=== PATIENT | female | born 1995 | race Caucasian/White ===

== ENCOUNTER 2017-10-24 08:00 | Outpatient (CLI) | payer OTHER | END 2017-10-24 08:01 | disposition home or self-care (01) | LOC: LAB.R 08:00 | PROVIDERS: ATTEND Registered Nurse | DX: Z34.81 Encounter for supervision of other normal pregnancy, first trimester (principal); Z36.9 Encounter for antenatal screening, unspecified | CPT/HCPCS: 87491; 87591 ==

== ENCOUNTER 2017-11-05 12:38 | Outpatient (CLI) | payer OTHER ==
[2017-11-05 13:35] LABS: BILIRUBIN,URINE NEGATIVE (NEGATIVE); GLUCOSE, URINE (UA) NEGATIVE (NEGATIVE); KETONES,URINE (UA) NEGATIVE (NEGATIVE); LEUKOCYTE ESTERASE, URINE NEGATIVE (NEGATIVE); NITRITE,URINE NEGATIVE (NEGATIVE); OCCULT BLOOD,URINE NEGATIVE (NEGATIVE); PH,URINE 6.5 PH (5.0-7.5); PROTEIN,URINE NEGATIVE (NEGATIVE); UROBILINOGEN,URINE 0.2 (NORMAL) E.U./dL (NORMAL)
[2017-11-05 13:36] LABS: CLARITY,URINE HAZY (CLEAR)
[2017-11-05 13:42] LABS: BACTERIA,URINE Many /HPF (None Seen); RBC,URINE 0-5 /HPF (0-5); SQUAMOUS EPITHELIAL CELL,UR MANY Squamous (<= Few)
[2017-11-05 13:56] LABS: BASOPHILS # (AUTO) 0.1 10^3/uL (0.0-0.1); BASOPHILS % (AUTO) 0.8 %; EOSINOPHILS # (AUTO) 0.1 10^3/uL (0.0-0.7); EOSINOPHILS % (AUTO) 1.5 %; HGB - HEMOGLOBIN 13.8 g/dL (12.0-16.0); LYMPHOCYTES # (AUTO) 2.4 10^3/uL (1.5-3.5); LYMPHOCYTES % (AUTO) 25.5 %; MEAN CORPUSCULAR HEMOGLOBIN 30.3 pg (27.0-31.0); MEAN CORPUSCULAR HGB CONC 34.6 g/dL (32.0-36.0); MEAN CORPUSCULAR VOLUME 87.8 fL (81.0-99.0); MEAN PLATELET VOLUME 6.2 fL (7.9-10.8); MONOCYTES # (AUTO) 0.7 10^3/uL (0.0-1.0); MONOCYTES % (AUTO) 7.1 %; NEUTROPHILS # (AUTO) 6.1 10^3/uL (1.5-6.6); NEUTROPHILS % (AUTO) 65.1 %; PLT - PLATELET COUNT 219 10^3/uL (130-450); RED BLOOD COUNT 4.55 10^6/uL (4.20-5.40); RED CELL DISTRIBUTION WIDTH 13.6 % (12.0-15.0); WHITE BLOOD COUNT 9.3 x10^3/uL (4.8-10.8)
[2017-11-08 08:47] LABS: HEPATITIS C ANTIBODY NON-REACTIVE (NON-REACTIVE)
[2017-11-08 08:48] LABS: HEPATITIS B SURFACE ANTIGEN NON-REACTIVE (NON-REACTIVE)
[2017-11-08 13:53] LABS: HIV AG/AB 4TH GEN NON-REACTIVE (NON-REACTIVE)
== END 2017-11-05 12:39 | disposition home or self-care (01) ==
LOC: LAB 12:38
PROVIDERS: ATTEND Registered Nurse
DX: Z36.9 Encounter for antenatal screening, unspecified (principal); Z34.81 Encounter for supervision of other normal pregnancy, first trimester
CPT/HCPCS: 36415; 81001; 81599; 85025; 86592; 86762; 86803; 86850; 86900; 86901; 87340; 87389

== ENCOUNTER 2017-11-06 11:14 | Outpatient (CLI) | payer OTHER ==
[2017-11-06] MEDS ORDERED: LACTATED RINGERS 1,000 ML IV ONE (11:21)
[2017-11-06] MEDS ORDERED: ONDANSETRON 4 MG/2 ML VIAL IVP PRN (11:21)
[2017-11-06] MEDS: SODIUM CHLORIDE FLUSH 0.9% 10 ML SYRINGE ONE (11:58)
[2017-11-06 14:30] VITALS: BP 102/56
== END 2017-11-06 14:20 | disposition home or self-care (01) ==
LOC: WFO 11:14 → FBP 11:15 → WFO 14:20
PROVIDERS: ATTEND Nurse Practitioner Obstetrics & Gynecology
DX: O21.9 Vomiting of pregnancy, unspecified (principal); Z3A.12 12 weeks gestation of pregnancy
CPT/HCPCS: 96374; 99211; J7120

== ENCOUNTER 2017-12-29 07:24 | Outpatient (CLI) | payer OTHER ==
--- NOTE | 2017-12-31 18:01 | Ultrasound Report ---
OB ULTRASOUND: 12/29/2017 CLINICAL INDICATION: anatomy. TECHNIQUE: Real-time scanning was performed with transportation services representative static images obtained. LAST MENSTRUAL PERIOD: 08/12/2017 Clinical Age: -- US Age: 20 weeks 3 days EFW Hadlock: 360 grams EFW% Hadlock: -- Heart Rate: 154 bpm EDC: 05/19/2018 US EDC: 05/15/2018 BPD Hadlock: 20 weeks 1 day; Mean mm 47 HC Hadlock: 20 weeks 0 days; Mean mm 175 AC Hadlock: 20 weeks 4 days; Mean mm 154 FL Hadlock: 20 weeks 5 days; Mean mm 34 Presentation: cephalic Placental Location: fundal - L Cervical Length: TA 4.0 cm Amniotic Fluid: LORNE 12.6 cm; subjectively normal; MVP 4.1 cm FINDINGS: There is a single viable intrauterine gestation in cephalic presentation. heart rate is 154 BPM. Placenta is fundal, without evidence of previa. Amniotic fluid volume is subjectively normal, with the deepest pocket of 4.1 cm. By size, the fetus measures 20 weeks 3 days (uncertain LMP). ANATOMY The following anatomic structures were visualized and appear normal: The intracranial contents, including the ventricles and posterior fossa; the lips and orbits; the spine; the heart, including 4 chamber view and outflow tracts, and diaphragm; the abdominal contents, including the stomach, the bilateral kidneys, and urinary bladder, as well as a normal 3-vessel cord insertion; 4 limbs. No free fluid or adnexal lesion is appreciated. IMPRESSION: SINGLE VIABLE INTRAUTERINE GESTATION, MEASURING 20 WEEKS 3 DAYS BY SIZE. NORMAL ANATOMIC SURVEY. TD: 12/29/2017 10:21 [facility]
== END 2017-12-29 07:25 | disposition home or self-care (01) ==
LOC: DI 07:24
PROVIDERS: ATTEND Registered Nurse
DX: Z36.9 Encounter for antenatal screening, unspecified (principal)
CPT/HCPCS: 76811

== ENCOUNTER 2018-02-13 11:24 | Outpatient (CLI) | payer OTHER ==
[2018-02-13 12:43] LABS: HGB - HEMOGLOBIN 11.8 g/dL (12.0-16.0); MEAN CORPUSCULAR HEMOGLOBIN 31.5 pg (27.0-31.0); MEAN CORPUSCULAR HGB CONC 33.5 g/dL (32.0-36.0); MEAN CORPUSCULAR VOLUME 94.1 fL (81.0-99.0); RED BLOOD COUNT 3.75 10^6/uL (4.20-5.40); RED CELL DISTRIBUTION WIDTH 12.9 % (12.0-15.0); WHITE BLOOD COUNT 11.1 x10^3/uL (4.8-10.8)
== END 2018-02-13 11:25 | disposition home or self-care (01) ==
LOC: LAB 11:24
PROVIDERS: ATTEND Registered Nurse
DX: Z34.82 Encounter for supervision of other normal pregnancy, second trimester (principal)
CPT/HCPCS: 36415; 82950; 85027; 86850

== ENCOUNTER 2018-04-12 12:14 | Outpatient (CLI) | payer OTHER ==
[2018-04-12 12:25] VITALS: BP 130/75
[2018-04-12 13:16] LABS: RUPTURE OF MEMBRANES PLUS NEGATIVE (NEGATIVE)
== END 2018-04-12 13:20 | disposition home or self-care (01) ==
LOC: WFO 12:14 → FBP 12:16 → WFO 13:20
PROVIDERS: ATTEND Registered Nurse
DX: O99.89 Other specified diseases and conditions complicating pregnancy, childbirth and the puerperium (principal); N89.8 Other specified noninflammatory disorders of vagina; Z3A.34 34 weeks gestation of pregnancy
CPT/HCPCS: 84112; 99213

== ENCOUNTER 2018-04-25 08:00 | Outpatient (CLI) | payer OTHER | END 2018-04-25 08:01 | disposition home or self-care (01) | LOC: LAB.R 08:00 | PROVIDERS: ATTEND Nurse Practitioner Obstetrics & Gynecology | DX: Z36.85 Encounter for antenatal screening for Streptococcus B (principal) | CPT/HCPCS: 87797 ==

== ENCOUNTER 2018-05-18 20:06 | Inpatient (IN) | payer OTHER ==
[2018-05-18 20:29] LABS: RUPTURE OF MEMBRANES PLUS POSITIVE (NEGATIVE)
[2018-05-18] MEDS ORDERED: SODIUM CHLORIDE FLUSH 0.9% 10 ML SYRINGE IVP PRN (20:36)
[2018-05-18] MEDS ORDERED: OXYTOCIN/SODIUM CHLORIDE 500 ML IV SCH (21:00)
[2018-05-18] MEDS: LACTATED RINGERS 1,000 ML IV SCH (21:00)
[2018-05-18 21:29] LABS: BASOPHILS # (AUTO) 0.1 10^3/uL (0.0-0.1); EOSINOPHILS # (AUTO) 0.1 10^3/uL (0.0-0.7); EOSINOPHILS % (AUTO) 1.3 %; HGB - HEMOGLOBIN 12.1 g/dL (12.0-16.0); LYMPHOCYTES # (AUTO) 2.1 10^3/uL (1.5-3.5); LYMPHOCYTES % (AUTO) 21.3 %; MEAN CORPUSCULAR HEMOGLOBIN 31.6 pg (27.0-31.0); MEAN CORPUSCULAR VOLUME 90.2 fL (81.0-99.0); MEAN PLATELET VOLUME 6.7 fL (7.9-10.8); MONOCYTES # (AUTO) 0.8 10^3/uL (0.0-1.0); MONOCYTES % (AUTO) 8.7 %; NEUTROPHILS # (AUTO) 6.6 10^3/uL (1.5-6.6); NEUTROPHILS % (AUTO) 67.7 %; PLT - PLATELET COUNT 201 10^3/uL (130-450); RED BLOOD COUNT 3.82 10^6/uL (4.20-5.40); RED CELL DISTRIBUTION WIDTH 13.4 % (12.0-15.0); WHITE BLOOD COUNT 9.8 x10^3/uL (4.8-10.8)
--- NOTE | 2018-05-18 21:45 | HISTORY & PHYSICAL EXAMINATION ---
Admit History - Instructions Kaw/Slash: -Left hand click circles element as positive or present. -Right hand click slashes element as negative or not present. - Visit Reason Visit Reason: Membranes rupture - : 2 Parity: 0 Premature: 0 Ectopic: 0 : 1 Care: positive: [facility] Risk/History: positive: None Complications This : positive: None Smoking Status: Former smoker - Mother's Labs Mother's Blood Type: positive: O Mother's RH: positive: Positive GBS: positive: Group B Step Negative Rubella Status: positive: Immune Meds/Allgy - Home Medications Home Medications: Ambulatory Orders Medication Instructions Recorded Confirmed No Known Home Medications 09/24/15 09/24/15 - Allergies Allergies/Adverse Reactions: Allergies Allergy/AdvReac Type Severity Reaction Status Date / Time No Known Drug Allergies Allergy Verified 03/13/15 12:14 Review of Systems - Constitutional Constitutional: denies: Fatigue, Fever, Chills, Malaise - Eyes Eyes: denies: Pain, Irritation, Blurred vision, Spots in vision, Dipolpia - Ears, Nose & Throat Ears, Nose & Throat: denies: Tinnitus, Vertigo, Nasal congestion, Sore throat - Cardiovascular Cariovascular: denies: Irregular heart rate, Palpitations, Chest pain, Edema - Respiratory Respiratory: denies: Cough, Sputum production, Wheezing, Hemoptysis - Gastrointestinal Gastrointestinal: denies: Abdominal pain, Constipation, Diarrhea, Change in bowel habits, Nausea, Vomiting - Genitourinary Genitourinary: denies: Dysuria, Frequency, Urgency, Hematuria - Integumentary Integumentary: denies: Rash, Pruritis - Neurological Neurological: reports: Headache - Psychiatric Psychiatric: denies: Depression, Anxiety Physical - Abdominal Exam Vital Signs: Temp Pulse Resp BP Pulse Ox 36.4 C L 103 H 16 135/84 H 99 05/18/18 20:23 05/18/18 20:23 05/18/18 20:23 05/18/18 20:23 05/18/18 20:23 Contraction Frequency (min/apart): 5-7 Contraction Intensity: positive: Mild to moderate Uterine Resting Tone: positive: Soft - Monitoring Heart Rate Baseline: 140 Strip Review: positive: Category I - Presentation Presentation: positive: Vertex - Vaginal Exam Membranes: positive: Membranes ruptured Dilation (in cm): 4 Effacement (%): 80 Station: positive: 1 Cervical Position: positive: Posterior - Speculum Exam Speculum Exam Performed: positive: No Findings: positive: Gross leak Plan for Labor - Plan For Labor I expect patient to be DC'd or transferred within 96 hours.: Yes Plan for Labor: HPI: Charu is a 22yo @ 39.6wks gestation by LMP c/w 10.0wk U/S whom presents with c/o spontaneous rupture of membranes which was noted to be a large amount of clear fluid at approximately 1945 this evening (05/18/2018). She denies VB and reports +FM. Denies contractions. Her BP was moderately elevated upon her arrival at 142/76. Pt c/o persistent headache for the past couple of days. She denies visual disturbances, RUQ or epigastric pain and denies edema. She is a patient of [facility] in the care of the midwives and has received regular care since 10 weeks gestation. Her has been uncomplicated with the exception of significant nausea and vomiting secondary to gastroenteritis at 12 weeks gestation which required IV hydration and Zofran for management. Aaron and mom Brenda supportive at the bedside. Dating criteria: 1.) LMP 08/12/17 2.) Initial ultrasound at 10.0wks - agrees 3.) Serial exams 13-39 weeks -agree OB History: G1: SAB <6 weeks 09/2010 G2: Current PMHx: No significant. NKDA. MANAGER MANAGEMENT History: Menarche at age 12. No Hx STIs. No hx MANAGER MANAGEMENT surgeries. No Hx abnormal paps - last pap 2017 WNL Medications: PNV Surgical Hx: No previous surgeries Genetic Hx: maternal family hx Autism Social Hx: to Aaron. Previous some day smoker x 8 years prior to . No ETOH or IVDA. Family Hx: Alzheimer's - maternal grandfather; Diabetes - father, maternal grandmother; Heart attack/disease - father; HTN - mother; Alcohol or drug problem - father, paternal grandmother; hepatitis - father labs: O pos; antibody negative Hgb 13.8; Hct 40.0; 219 RPR non-reactive HIV non-reactive Hep B neg Hep C neg Rubella immune GC/CT negative 28wk labs: 1 hour GTT 112 Hgb 11.8; Hct 35.3; PLT 218 Antibody negative Tdap 03/10/2018 Influenza 05/16/2018 GBS negative Ultrasounds: Initial ultrasound at 10.0wks gestation reveals single, viable, intrauterine with CRL c/w LMP dating. 01/13/2018 FAS @ 20.3wks gestation reveals single viable intrauterine with size c/w assigned dating. Placenta fundal with no evidence of previa. LORNE WNL Physical Exam: A&O x4. Mood is good. Eager to meet her baby Heart RRR w/o M/G/R Lungs CTAB Abdomen gravid, soft, nontender. EFW 3200g SVE 4/80/-1, posterior, vertex Bilateral LE's no edema Assessment: 22yo @ 39.6wks gestation by LMP which equals 10.0wk U/S SROM x 3 hours GBS negative FHR Category I Plan: Initiation of pitocin for active management per protocol Continuous monitoring Encouraged frequent position changes and ambulation Epidural per maternal request Reviewed plan of care with pt, , mom, and RN at the bedside whom all agree with above plan and deny further questions or concerns at this time. Anticipate spontaneous vaginal delivery
[2018-05-18 22:17] LABS: URIC ACID 4.4 mg/dL (2.6-7.2)
[2018-05-18 23:02] LABS: CREATININE,URINE 68.8 mg/dL; MICROALBUM/CREATININE RATIO,UR 7.3 ug/mg (<30.0); MICROALBUMIN,URINE 0.5 mg/dL (0-300.0)
[2018-05-19] MEDS: LACTATED RINGERS 1,000 ML IV SCH ×3 (00:25→09:31)
[2018-05-19] MEDS ORDERED: fent/BUPIV 2 MCG/0.125% 250 ML EP ONE (00:40)
[2018-05-19] MEDS ORDERED: CITRIC ACID/SODIUM CITRATE 15 ML UDC PO ONE (00:41)
[2018-05-19] MEDS ORDERED: SODIUM CHLORIDE FLUSH 0.9% 10 ML SYRINGE IVP SCH (01:00)
[2018-05-19] MEDS ORDERED: METOCLOPRAMIDE 10 MG/2 ML VIAL IVP PRN (01:27)
[2018-05-19] MEDS ORDERED: fent/BUPIV 2 MCG/0.125% 250 ML EP PRN (01:27)
[2018-05-19] MEDS ORDERED: ePHEDrine 50 MG/ML VIAL IVP PRN (01:27)
[2018-05-19] MEDS ORDERED: NALOXONE 0.4 MG/ML VIAL IVP PRN (01:27)
[2018-05-19] MEDS ORDERED: LACTATED RINGERS 500 ML IV ONE (01:27)
[2018-05-19] MEDS ORDERED: ONDANSETRON 4 MG/2 ML VIAL IVP PRN (01:27)
[2018-05-19] MEDS ORDERED: NALBUPHINE 10 MG/ML AMP IVP PRN (01:27)
[2018-05-19] MEDS ORDERED: diphenhydrAMINE INJ 50 MG/ML VIAL IVP PRN (01:27)
--- NOTE | 2018-05-19 01:31 | ANESTHESIA ---
Pre-Anesthesia VS, & Labs - Diagnosis IUP term labor - Procedure Labor epidural placement Vital Signs: Temp Pulse Resp BP Pulse Ox 36.4 C L 103 H 16 135/84 H 99 05/18/18 20:23 05/18/18 20:23 05/18/18 20:23 05/18/18 20:23 05/18/18 20:23 Height 5 ft 9 in Weight (kg) 97.069 kg Body Mass Index 23.5 - Is Patient ?: Yes - Lab Results Current Lab Results: Laboratory Tests 05/18/18 22:00: Uric Acid 4.4, AST 19 05/18/18 22:00: Lactate Dehydrogenase 128 05/18/18 20:55: WBC 9.8, RBC 3.82 L, Hgb 12.1, Hct 34.5 L, MCV 90.2, MCH 31.6 H, MCHC 35.0, RDW 13.4, Plt Count 201, MPV 6.7 L, Neut # (Auto) 6.6, Lymph # (Auto) 2.1, [place] # (Auto) 0.8, Eos # (Auto) 0.1, Baso # (Auto) 0.1, Absolute Nucleated RBC 0.01, Nucleated RBC % 0.1 Lab results reviewed: Yes Fish Bones: 05/18/18 20:55 Home Medications and Allergies Home Medications: Ambulatory Orders Medication Instructions Recorded Confirmed No Known Home Medications 09/24/15 09/24/15 Active Medications Diphenhydramine HCl (Benadryl Inj) 12.5 - 25 mg IVP Q6HR PRN PRN Reason: ITCHING Ephedrine Sulfate () 5 mg IVP Q5M PRN PRN Reason: For SBP<100;give until SBP>100 Lactated Ringer's (Lr) 1,000 mls @ 150 mls/hr IV .Q6H40M MARILYN Last Admin: 05/19/18 00:25 Dose: 150 mls/hr Oxytocin/Sodium Chloride (Pitocin/Sodium Chloride) 500 mls @ 1 mls/hr IV TITR MARILYN; Protocol Last Admin: 05/19/18 00:25 Dose: 1 milliunit/min, 1 mls/hr Fentanyl/Bupivacaine/Sodium Chlor (Fent/Bupiv 2 Mcg/0.125%) 250 mls @ 0 mls/hr EP .Q0M PRN; Protocol PRN Reason: PAIN Lactated Ringer's (Lr) 500 mls @ 999 mls/hr IV ONCE ONE Stop: 05/19/18 01:57 Metoclopramide HCl (Reglan Inj) 10 mg IVP Q6HR PRN PRN Reason: Nausea / Vomiting Nalbuphine HCl (Nubain) 2.5 - 5 mg IVP Q4H PRN PRN Reason: ITCHING Naloxone HCl (Narcan) 0.1 mg IVP Q2M PRN PRN Reason: RR<8 Ondansetron HCl (Zofran Inj) 4 mg IVP Q6HR PRN PRN Reason: Nausea / Vomiting Sodium Chloride (Normal Saline Flush 0.9%) 10 ml IVP PRN PRN PRN Reason: NEEDED PER PROVIDER ORDERS Sodium Chloride (Normal Saline Flush 0.9%) 10 ml IVP 0100,0900,1700 MARILYN Last Admin: 05/19/18 00:25 Dose: 10 ml No Known Home Medications 09/24/15 Allergies/Adverse Reactions: Allergies Allergy/AdvReac Type Severity Reaction Status Date / Time No Known Drug Allergies Allergy Verified 03/13/15 12:14 Anes History & Medical History - Anesthetic History Anesthesia Complications: reports: No previous complications Family history of Anesthesia Complications: Denies Family history of Malignant Hyperthermia: Denies - Medical History Cardiovascular: reports: None Blood Disorders: reports: None Smoking Status: Former smoker - Obstetrical History : 2 Parity: 0 Events: positive: None Complications: positive: None Exam General: Alert, Oriented x3, Cooperative, No acute distress Dental: WNL Neck Mobility: Normal Mallampati classification: I Plan Anesthesia Type: Epidural Consent for Procedure(s) Verified and Reviewed: Yes Code Status: Attempt Resuscitation ASA classification: 2-Mild systemic disease Is this case an emergency?: No
--- NOTE | 2018-05-19 05:08 | PROVIDER PROGRESS NOTE ---
Labor Progress Note - Uterine Monitoring Uterine Monitoring Mode: positive: External toco Contraction Frequency (min/apart): 2-5 Contraction Intensity: positive: Moderate to strong Uterine Resting Tone: positive: Soft - Monitoring Monitor Mode: positive: External ultrasound Heart Rate Baseline: 130 Heart Rate Variability: positive: Moderate (6-25 bmp) Accelerations: positive: Absent Decelerations: positive: Early Strip Review: positive: Category I - Vaginal Exam Dilation (in cm): 6 Effacement (%): 100 Station: 1 Cervical Position: Midposition - Labor Progress Note Labor Progress Note/Additional Text: S: Patient sleeping comfortably in bed with epidural. Able to feel increasing pressure with contractions but states epidural is covering her pain with contractions well. and mom supportive at the bedside. O: BP 121/61, HR 83, RR 16 FHR baseline 140, moderate variability, no accels, recurrent early decelerations Contractions palpate moderate-firm every 2-5 minutes lasting 45-90 seconds with soft resting tone SVE 6/100/+1, midposition Pitocin @ 5mU/min A: 22yo @ 40.0wks gestation Augmentation of labor secondary to PROM Pitocin per protocol for a max infusion rate of 7mU/min SROM x 9 hours Category I FHR tracing GBS negative P: Continue active management with titration of pitocin per protocol Epidural adequate for pain management Continue rotation in bed with peanut ball Continuous monitoring Anticipate spontaneous vaginal delivery
[2018-05-19] MEDS ORDERED: HYDROCORTISONE/PRAMOXINE 10 GM PR PRN (11:55)
[2018-05-19] MEDS ORDERED: OXYTOCIN/SODIUM CHLORIDE 250 ML IV ONE (11:55)
--- NOTE | 2018-05-19 12:15 | DELIVERY NOTE ---
Delivery Note - Labor Labor: positive: Augmented by oxytocin - Delivery Method Delivery Method: positive: Spontaneous vaginal delivery - Presentation Presentation: positive: Vertex, MC - left occiput anterior - Nuchal Cord Nuchal Cord: positive: None - Amniotic Fluid Description Amniotic Fluid Description: positive: Clear - Episiotomy Type Episiotomy Type: positive: None - Laceration Laceration: positive: None - Delivery Outcome Delivery Outcome: positive: Livebirth - [place]: positive: Placed in direct skin contact with mother, Stimulated, Warmed, [place] used sex: positive: Female - Cord Cord: positive: 3 vessels - Placenta Placenta: positive: Intact, Spontaneous - Estimated Blood Loss Estimated Blood Loss (in cc): 250 - Post Delivery Events Post Delivery Events: positive: No post delivery events - Delivery Comments (Free Text/Narrative) Delivery Comments (Free Text/Narrative): Labor: This 22yo @ 40.0wks gestation by LMP presented at on 05/18/2018 at approximately 2000 with c/o SROM large amount of clear fluid at 1930 on 05/18/2018. Cervix was 4/80/-1, posterior and vertex. No contractions appreciated. Upon her arrival she complained of a persistent headache and had 3 moderately elevated BPs 140s/80s -PIH panel was ordered and was WNL. Subsequent BPs normotensive. FHR pattern demonstrated a baseline 150 with episodes of minimal variability and Category II tracing - overall reassuring. Epidural placed upon maternal request. Patient progressed to c/c/+1 at 0928 with effective maternal pushing effort beginning at 0937. : Normal SVB of viable female infant named Margret with delivery of head occurring at 1138 on 05/19/2018, no nuchal cord, and delivery of anterior shoulder followed closely by infant body at 1139. 's were 8/9 at 1 and 5 min respectively. The was placed on maternal abdomen, stimulated, dried, and placed skin to skin. The umbilical cord was allowed to stop pulsating at which time it was doubly clamped by CNM and cut by FOB. Cord blood was obtained. Placenta delivered spontaneously and intact at 1145. 3VC. Pitocin was administered via IV for hemostasis. EBL 250mL. Fourth Stage: Uterine fundus firm and there is no excessive bleeding. Perineum, vagina, and cervix were inspected and found to be intact. initiated. Family bonding well. Both mother and baby were left in stable condition.
[2018-05-19] MEDS: IBUPROFEN 800 MG TABLET PO SCH ×2 (13:08→20:27)
[2018-05-19] MEDS: ACETAMINOPHEN 500 MG TABLET PO SCH ×2 (13:09→21:12)
[2018-05-19] MEDS: WITCH HAZEL/GLYCERIN 1 EACH MED..PAD TOP PRN (14:21)
[2018-05-19] MEDS: DOCUSATE SODIUM 100 MG CAPSULE PO SCH (21:12)
[2018-05-20] MEDS: IBUPROFEN 800 MG TABLET PO SCH ×3 (02:41→18:52)
[2018-05-20] MEDS: ACETAMINOPHEN 500 MG TABLET PO SCH ×3 (04:59→23:25)
[2018-05-20] MEDS: DOCUSATE SODIUM 100 MG CAPSULE PO SCH ×2 (08:54→23:25)
--- NOTE | 2018-05-20 09:58 | PROVIDER PROGRESS NOTE ---
Subjective - Subjective Subjective: S: Bonding well with baby. Having difficulty with as infant is very sleepy at the breast and having difficulty getting baby to get an open mouth. She has been pumping and syringe feeding and is producing an adequate amount of colostrum. She is feeling somewhat discourage. Aaron supportive at the bedside and changing baby's diaper upon my arrival. Charu states she feels well supported. Moderate pain control with ibuprofen and requests something more for pain management. Bleeding decreased and is light. O: BP 123/75, HR 59, T36.5 RR 22 Heart RRR w/o M/G/R, lungs CTAB, abdomen soft and nontender with fundus firm at U-1. Bilateral LE's no edema. Perineum intact with mild edema and bruising noted. A: 22yo -->P1 PPD#1 s/p TSVD of viable female P: Continue routine pp care and medications Special attention to support today Celebrex ordered for pain management Plan for discharge home tomorrow Pt and verbalized understanding and deny further questions or concerns at this time Objective - Vital Signs/Intake & Output Vital Signs: Vital Signs x48h Temp Pulse Resp BP Pulse Ox 05/20/18 06:00 36.5 C 59 L 22 123/75 100 Intake & Output: Intake & Output 05/17/18 05/18/18 05/19/18 05/20/18 23:59 23:59 23:59 23:59 Intake Total 2027.5 400 Output Total 1150 800 Balance 877.5 -400 - Lab Results Fish Bones: 05/18/18 20:55
[2018-05-20] MEDS: CELECOXIB 100 MG CAPSULE PO SCH (15:38)
[2018-05-21] MEDS: CELECOXIB 100 MG CAPSULE PO SCH (03:32)
[2018-05-21] MEDS: WITCH HAZEL/GLYCERIN 1 EACH MED..PAD TOP PRN (03:35)
[2018-05-21] MEDS: ACETAMINOPHEN 500 MG TABLET PO SCH (05:45)
[2018-05-21 08:58] VITALS: BP 126/81
--- NOTE | 2018-05-21 10:40 | Discharge Plan ---
Discharge Plan Disposition: 01 Home, Self Care Condition: Good Diet: Regular Activity Restrictions: No Restrictions Shower Restrictions: No Driving Restrictions: No Weight Bearing: Full Weight No Smoking: If you smoke, Please STOP! Call for help. Follow-up with: Jerica Shea CNM, ARNP [Provider Admit Priv/Credential] -
--- NOTE | 2018-05-21 11:02 | PROVIDER PROGRESS NOTE ---
Subjective - Subjective Subjective: FINAL PROGRESS NOTE S: Bonding well with baby. with more ease and feeling confident. Bleeding decreased and is light. Pain well controlled. supportive at the bedside. Pain well controlled with oral medications. O: BP 126/81, T36.5, RR 16 HR 69 Heart RRR w/o M/G/R, lungs CTAB, abdomen soft and nontender with fundus firm at U-2. Bilateral LE"s no edema. Perineum comfortable. A: 22yo -->P1 S/p TSVD of viable female infant Intact perineum P: Reviewed self care and warning signs Planning Mirena IUD for contraception She plans to f/u with myself in 1 week for support visit and then in 3 weeks for routine visit She and her both verbalized understanding and agrees to above plan. She denies further questions or concerns today. Objective - Vital Signs/Intake & Output Vital Signs: Vital Signs x48h Temp Pulse Resp BP Pulse Ox 05/21/18 08:30 36.5 C 69 16 126/81 H 100 Intake & Output: Intake & Output 05/18/18 05/19/18 05/20/18 05/21/18 23:59 23:59 23:59 23:59 Intake Total 2027.5 400 Output Total 1150 800 Balance 877.5 -400 - Lab Results Fish Bones: 05/18/18 20:55
--- NOTE | 2018-05-21 12:21 | Labor Flowsheet ---
Labor Flowsheet Datetime Report Generated by CPN: 05/21/2018 12:20 Datetime: 05/21/2018 08:00 VITAL SIGNS NBP Sys/Kisha/Mean (mmHg): 126 : 81 : 90 Pulse: 69 LaborFlag: Labor Datetime: 05/21/2018 07:59 SpO2 (%): 100 Datetime: 05/19/2018 15:05 Epidural Procedure Other: Cath Removed; Cath Intact Datetime: 05/19/2018 14:54 Membranes Ruptured Date/Time: 05/19/2018 19:45 Membranes Rupture Method: Spontaneous Amniotic Fluid Color: Clear Amniotic Fluid Amount: Small Amniotic Fluid Odor: Normal Datetime: 05/19/2018 13:08 Temperature (C): 37.0 Datetime: 05/19/2018 11:53 Medication Comments: pit @50 Datetime: 05/19/2018 11:52 Anesthesia Comments: Epidural off Datetime: 05/19/2018 11:45 Patient Care Comments: Placenta Datetime: 05/19/2018 11:39 Comments: Delivery@[id number] Datetime: 05/19/2018 11:38 UTERINE ACTIVITY Monitor Mode: External Frequency (min): 1-2.5 Quality: Strong Duration (sec): 40-60 Pattern: Normal: <= 5 Contractions in 10 Minutes Resting Tone (Palpate): Relaxed ASSESSMENT A Monitor Mode: External US FHR Baseline Rate : 150 Variability: Moderate 6-25 bpm Accelerations: 15X15 Decelerations: Early Category: Category I Oxygen Method: Room Air Datetime: 05/19/2018 10:08 I/O Interventions: Straight Cath (ml) @ 300 Datetime: 05/19/2018 10:04 Anesthesia Level Check: T10- Umbilicus Datetime: 05/19/2018 10:03 Respirations: 20 Datetime: 05/19/2018 10:00 Monitor Interventions for FHR: Ultrasound Adjusted Datetime: 05/19/2018 09:33 PATIENT CARE IV/Blood Work: New IV Bag Hung Datetime: 05/19/2018 09:28 VAGINAL EXAM Dilatation (cm): 10.0 Effacement (%): 100 Station: 1 Exam by: CNM Shabbir Datetime: 05/19/2018 09:21 Provider Notified (Name): CNM Shabbir Communication Comments: notified that pt is c/o constant vaginal pressure Datetime: 05/19/2018 09:06 Monitor Interventions for UA: [place] Adjusted Datetime: 05/19/2018 09:05 Patient Position/Activity: Right Tilt Datetime: 05/19/2018 08:59 MEDICATIONS Pitocin (milliunits): Increased to @ 8 Datetime: 05/19/2018 08:30 FHR Baseline Changes: No Baseline Change Datetime: 05/19/2018 08:16 Pain Assessment Comments: Pt dozing with R arm above her head. Same arm as BP cuff Datetime: 05/19/2018 08:00 Contraction Comments: pt moving, toco adjusted Datetime: 05/19/2018 07:50 MATERNAL ASSESSMENT Level of Consciousness: Fully Conscious Headache: Denies Breath Sounds, Left: Clear and Equal Breath Sounds, Right: Clear and Equal Nausea/Vomiting: Denies RUQ Epigastric Pain: Denies Datetime: 05/19/2018 07:44 Pain Presence: Intermittent Pain Type: Contraction Pain Location: Abdomen Datetime: 05/19/2018 07:30 Pitocin Checklist: At Least 1 Acceleration of 15 bpm x 15 Seconds in 30 Minutes or Adequate Variabi lity; No More than 5 Uterine Contractions in 10 Minutes for any 20 Minute Interval; Uterus Palpates S oft between Contractions Oxygen Amount (LPM): 10 Datetime: 05/19/2018 07:29 COMMUNICATION Communication: Call/Page Placed to Provider Notification Reason: Pain Datetime: 05/19/2018 07:03 PAIN Pain Scale: 8 Pain Coping: Breathing Through Contractions Datetime: 05/19/2018 06:48 Vaginal Bleeding: Normal Show Cervix, Consistency: Soft Cervix, Position: Anterior Datetime: 05/19/2018 04:59 Vaginal Exam Comments: station 0-1 Datetime: 05/19/2018 04:57 Stage of : Labor Datetime: 05/19/2018 03:23 Antiemetics/Antacids: Zofran (mg) @ (Annotations: 4mg Zofran) Datetime: 05/19/2018 02:13 Temperature Route: Axillary Datetime: 05/19/2018 01:06 ANESTHESIA Anesthesia Plans: Epidural Epidural Procedure: Cath Placed; Test Dose Datetime: 05/19/2018 00:50 PROCEDURE TIME OUT Procedure Verify: Correct Patient Identity; Correct Side and Site are Marked; Accurate Procedure Co nsent Form; Agreement on Procedure to be Done; Correct Patient Position; Addressed Need to Administer Antibiotics or Fluids for Irrigation; Safety Precautions Based on Patient History or Medication Use Datetime: 05/18/2018 21:26 Pain Relief Measures: Comfort Measures Comfort Measures: Breathing/Relaxation
--- NOTE | 2018-05-24 17:10 | DISCHARGE SUMMARY ---
Physician: ROGER Diallo DATE OF ADMISSION: 05/18/2018 DATE OF DISCHARGE: 05/21/2018 DIAGNOSES ON ADMISSION: 1. A 22-year-old G2, P0-0-1-0 at 39.6 weeks' gestation. 2. Spontaneous rupture of membranes. 3. GBS negative. DIAGNOSES ON DISCHARGE 1. A 22-year-old 2-year-old G2, P1-0-1-1, status post spontaneous vaginal delivery on 05/19/2018. 2. Normal recovery. BRIEF HISTORY: She is a patient of [facility] who presented on 05/18/2018 with complaints of spontaneous rupture of membranes, which was noted to be a moderate amount of clear fluid at 1945 hours on 05/18/2018. She denies contractions. Her blood pressure is moderately elevated upon her arrival at 142/76 and initial PIH labs were drawn and WNL. She was augmented with Pitocin per protocol. She spontaneously delivered a viable female on 05/19/2018 at 1138 hours. Apgars were 8 and 9 at 1 and 5 minutes, respectively. EBL 250 mL. The perineum, vagina and cervix were inspected and found to be intact. She has been doing well in her course. She is ambulating and tolerating a regular diet. She is urinating without difficulty and her lochia is normal. Her pain is well controlled with oral medications. She will be discharged home today on day #2 with instructions to take ibuprofen and Tylenol for pain management. She intends to followup with myself in 1 week for support visit and in 3 weeks for routine visit. She has been given precautions to call if she has any worsening fevers, chills, abdominal pain, increased bleeding, or foul smelling vaginal lochia. TD: 05/24/2018 16:30 CHERYL
== END 2018-05-21 12:10 | disposition home or self-care (01) | DRG 775 ==
LOC: WFO 20:06 → FBP 20:08 → WFO 20:33 → FBP 20:34
PROVIDERS: ADMIT Nurse Practitioner Obstetrics & Gynecology; ATTEND Nurse Practitioner Obstetrics & Gynecology
PROC: 10E0XZZ Delivery of Products of Conception, External Approach (ICD-10-PCS; principal; 2018-05-19)
DX: O42.02 Full-term premature rupture of membranes, onset of labor within 24 hours of rupture (principal); Z37.0 Single live birth; Z3A.39 39 weeks gestation of pregnancy; Z87.891 Personal history of nicotine dependence
CPT/HCPCS: 82043; 82570; 83615; 84112; 84450; 84550; 85025; 99213